=== PATIENT | female | born 1965 | race Hispanic/Latino ===

== ENCOUNTER 2019-01-20 13:08 | Outpatient (CLI) | payer OTHER ==
--- NOTE | 2019-02-08 13:19 | MMO ---
Bilateral MAMMO Bilat Screen DDI. CLINICAL HISTORY: Patient is 53 years old and is seen for screening. The patient has no family history of breast cancer. The patient has no personal history of cancer. VIEWS: The views performed were: bilateral craniocaudal; bilateral mediolateral oblique; and bilateral exaggerated craniocaudal. FILMS COMPARED: The present examination has been compared to a prior imaging study performed at [facility] on 04/04/2015. This study has been interpreted with the assistance of computer-aided detection. MAMMOGRAM FINDINGS: The breasts are heterogeneously dense, which could obscure a lesion on mammography. There is a questionable mass in the left retroaerolar breast. IMPRESSION: FINDING IN THE LEFT BREAST REQUIRES ADDITIONAL EVALUATION. SPOT COMPRESSION IS RECOMMENDED. AN ULTRASOUND EXAM IS RECOMMENDED. ADDITIONAL IMAGING. ACR BI-RADS Category 0 - Incomplete: Need additional imaging evaluation. [facility] will notify the patient of the need for additional imaging services. MAMMOGRAPHY NOTE: 1. A negative mammogram report should not delay a biopsy if a dominant of clinically suspicious mass is present. 2. Approximately 10% to 15% of breast cancers are not detected by mammography. 3. Adenosis and dense breasts may obscure an underlying neoplasm.
== END 2019-01-20 13:09 | disposition home or self-care (01) ==
LOC: BICMAMMO 13:08
PROVIDERS: ATTEND Family Medicine
DX: Z12.31 Encounter for screening mammogram for malignant neoplasm of breast (principal)
CPT/HCPCS: 77067

== ENCOUNTER 2019-02-25 13:23 | Outpatient (CLI) | payer OTHER ==
--- NOTE | 2019-02-25 14:10 | ULT ---
LEFT BREAST LIMITED ULTRASOUND: Date: 02/25/19 HISTORY: Follow-up mass in the subareolar aspect of the left breast. FINDINGS: In the retroareolar region of the left breast, there is a 1.4 x 1.5 cm diameter, somewhat poorly circ umscribed, solid, slightly hypoechoic mass very concerning for a malignancy. This corresponds to the abnormal mammographic finding. IMPRESSION: 1.4 x 1.5 cm diameter, poorly circumscribed, solid mass in the retroareolar region of the left breast , corresponding to the mammographic finding. BIRADS Category 4 - Suspicious finding. Ultrasound-guided biopsy is recommended. Discussed with Dr. Champagne POS: OFF
== END 2019-02-25 13:24 | disposition home or self-care (01) ==
LOC: BICULT 13:23
PROVIDERS: ATTEND Family Medicine
DX: R92.8 Other abnormal and inconclusive findings on diagnostic imaging of breast (principal); N63.20 Unspecified lump in the left breast, unspecified quadrant

== ENCOUNTER → 2019-03-04 | Day surgery (SDC) | payer OTHER ==
--- NOTE | 2019-03-04 14:11 | MMO ---
Left Breast MAMMO Unilat Diag DDI LT. CLINICAL HISTORY: Patient is 53 years old and is seen for diagnostic exam. VIEWS: The views performed were: . FILMS COMPARED: The present examination has been compared to prior imaging studies performed at [facility] on 04/04/2015, and at [facility] on 01/20/2019 and 02/25/2019. MAMMOGRAM FINDINGS: There is a biopsy clip seen in the left breast. IMPRESSION: BIOPSY CLIP IN THE LEFT BREAST IS CONFIRMED UTILIZING POST PROCEDURE MAMMOGRAM. THE RESULTS OF THIS EXAM WERE SENT TO THE PATIENT. MAMMOGRAPHY NOTE: 1. A negative mammogram report should not delay a biopsy if a dominant of clinically suspicious mass is present. 2. Approximately 10% to 15% of breast cancers are not detected by mammography. 3. Adenosis and dense breasts may obscure an underlying neoplasm.
--- NOTE | 2019-03-04 14:32 | ULT ---
Sonographic guided left breast mass biopsy with clip placement HISTORY: Left breast mass. FINDINGS: The procedure N-terminal questioned, the hypoechoic mass at the superior aspect of the left breast was visualized. Sterile technique, buffered local anesthesia, sonographic guidance, and a lateral approach was used to carefully advanced a 14-gauge biopsy needle to the level of the mass. Po sition was confirmed with sonography. A total of 3 14-gauge core biopsy specimens were obtained and eventually submitted to pathology for evaluation. Localization clip was placed in the biopsy bed under sonographic control. Patient tolerated the proce dure well and was eventually dismissed in good condition. IMPRESSION: Technically successful sonographic guided biopsy left breast mass. Pathology is pending.
== END ==
LOC: BICULT 13:00
PROVIDERS: ATTEND Family Medicine
PROC: 0HBU3ZX Excision of Left Breast, Percutaneous Approach, Diagnostic (ICD-10-PCS; principal; 2019-03-04)
DX: C50.112 Malignant neoplasm of central portion of left female breast (principal)
CPT/HCPCS: 19083; 88305; 88341; 88342